=== PATIENT | female | born 1960 | race Caucasian/White ===

== ENCOUNTER → 2023-06-26 07:02 | Outpatient (REF) | payer OTHER, SELFPAY ==
[2023-06-26 08:38] LABS: ALT (SGPT) 26 U/L (0-35); AST (SGOT) 19 U/L (14-36); Albumin 3.5 g/dl (3.5-5.0); Alkaline Phosphatase 61 U/L (38-126); Blood Urea Nitrogen 38 mg/dl (7-17); Calcium 9.6 mg/dl (8.4-10.2); Carbon Dioxide 28 mmol/L (22-30); Chloride 106 mmol/L (98-107); Glucose 93 mg/dl (70-99); HDL Cholesterol 73 mg/dl; LDL Cholesterol, Calculated 68 mg/dl; Potassium 4.3 mmol/L (3.5-5.1); Sodium 135 mmol/L (135-145); Total Bilirubin 0.6 mg/dl (0.2-1.3); Total Cholesterol 155 mg/dl (50-199); Total Protein 6.1 g/dl (6.3-8.2); Triglyceride 73 mg/dl (10-149); Very Low Density Lipoprotein 14 mg/dl (0-30); eGFR > 60.00
== END ==
LOC: MRI 3T 07:02
PROVIDERS: ATTENDING PHYSICIAN Physician Assistant Medical; REFERRING PHYSICIAN Internal Medicine Interventional Cardiology
DX: M54.50 Low back pain, unspecified (principal); E78.2 Mixed hyperlipidemia; R01.1 Cardiac murmur, unspecified; Q61.3 Polycystic kidney, unspecified; I10 Essential (primary) hypertension; I25.10 Atherosclerotic heart disease of native coronary artery without angina pectoris
CPT/HCPCS: 36415; 72148; 80053; 80061

== ENCOUNTER → 2023-09-15 06:36 | Outpatient (REF) | payer OTHER, SELFPAY ==
[2023-09-15 08:08] LABS: ALT (SGPT) 18 U/L (0-35); AST (SGOT) 22 U/L (14-36); Albumin 3.6 g/dl (3.5-5.0); Alkaline Phosphatase 55 U/L (38-126); Blood Urea Nitrogen 21 mg/dl (7-17); Calcium 9.9 mg/dl (8.4-10.2); Carbon Dioxide 26 mmol/L (22-30); Chloride 108 mmol/L (98-107); Glucose 99 mg/dl (70-99); Potassium 4.2 mmol/L (3.5-5.1); Sodium 142 mmol/L (135-145); Total Bilirubin 0.4 mg/dl (0.2-1.3); Total Protein 6.3 g/dl (6.3-8.2); eGFR > 60.00
== END ==
LOC: REG 06:36
PROVIDERS: ATTENDING PHYSICIAN Specialist; FAMILY PHYSICIAN Physician Assistant Medical
DX: I10 Essential (primary) hypertension (principal); R80.9 Proteinuria, unspecified; Q61.2 Polycystic kidney, adult type; N18.1 Chronic kidney disease, stage 1
CPT/HCPCS: 36415; 80053

== ENCOUNTER → 2023-09-27 08:44 | Outpatient (REF) | payer OTHER, SELFPAY ==
[2023-09-27 10:24] LABS: ALT (SGPT) 18 U/L (0-35); AST (SGOT) 19 U/L (14-36); Albumin 3.5 g/dl (3.5-5.0); Alkaline Phosphatase 56 U/L (38-126); Blood Urea Nitrogen 21 mg/dl (7-17); Carbon Dioxide 29 mmol/L (22-30); Chloride 108 mmol/L (98-107); Glucose 92 mg/dl (70-99); Potassium 4.5 mmol/L (3.5-5.1); Sodium 140 mmol/L (135-145); Total Bilirubin 0.3 mg/dl (0.2-1.3); Total Protein 6.4 g/dl (6.3-8.2); eGFR 56.11
== END ==
LOC: REG 08:44
PROVIDERS: ATTENDING PHYSICIAN Specialist; FAMILY PHYSICIAN Physician Assistant Medical
DX: I10 Essential (primary) hypertension (principal); R80.9 Proteinuria, unspecified; Q61.2 Polycystic kidney, adult type; N18.1 Chronic kidney disease, stage 1
CPT/HCPCS: 36415; 80053

== ENCOUNTER → 2023-10-24 07:04 | Outpatient (REF) | payer MEDICARE, SELFPAY ==
[2023-10-24 10:18] LABS: ALT (SGPT) 19 U/L (0-35); AST (SGOT) 24 U/L (14-36); Alkaline Phosphatase 53 U/L (38-126); Blood Urea Nitrogen 36 mg/dl (7-17); Calcium 10.4 mg/dl (8.4-10.2); Carbon Dioxide 27 mmol/L (22-30); Chloride 107 mmol/L (98-107); Glucose 93 mg/dl (70-99); Potassium 4.8 mmol/L (3.5-5.1); Sodium 139 mmol/L (135-145); Total Bilirubin 0.4 mg/dl (0.2-1.3); Total Protein 6.7 g/dl (6.3-8.2); eGFR 55.76
== END ==
LOC: REG 07:04
PROVIDERS: ATTENDING PHYSICIAN Specialist; FAMILY PHYSICIAN Physician Assistant Medical
DX: I10 Essential (primary) hypertension (principal); R80.9 Proteinuria, unspecified; Q61.2 Polycystic kidney, adult type; N18.1 Chronic kidney disease, stage 1
CPT/HCPCS: 36415; 80053

== ENCOUNTER → 2023-11-22 07:49 | Outpatient (REF) | payer MEDICARE, SELFPAY ==
[2023-11-22 09:26] LABS: ALT (SGPT) 23 U/L (0-35); AST (SGOT) 27 U/L (14-36); Albumin 3.8 g/dl (3.5-5.0); Alkaline Phosphatase 42 U/L (38-126); Blood Urea Nitrogen 28 mg/dl (7-17); Calcium 10.2 mg/dl (8.4-10.2); Carbon Dioxide 26 mmol/L (22-30); Chloride 109 mmol/L (98-107); Glucose 100 mg/dl (70-99); Sodium 140 mmol/L (135-145); Total Bilirubin 0.5 mg/dl (0.2-1.3); Total Protein 6.4 g/dl (6.3-8.2); eGFR 55.76
[2023-11-22 14:32] LABS: Potassium 4.2 mmol/L (3.5-5.1)
== END ==
LOC: REG 07:49
PROVIDERS: ATTENDING PHYSICIAN Specialist; FAMILY PHYSICIAN Physician Assistant Medical
DX: I10 Essential (primary) hypertension (principal); R80.9 Proteinuria, unspecified; Q61.2 Polycystic kidney, adult type; N18.1 Chronic kidney disease, stage 1
CPT/HCPCS: 36415; 80053

== ENCOUNTER → 2023-12-19 06:36 | Outpatient (REF) | payer MEDICARE, SELFPAY ==
[2023-12-19 08:07] LABS: ALT (SGPT) 16 U/L (0-35); AST (SGOT) 21 U/L (14-36); Albumin 3.6 g/dl (3.5-5.0); Alkaline Phosphatase 52 U/L (38-126); Blood Urea Nitrogen 22 mg/dl (7-17); Calcium 9.6 mg/dl (8.4-10.2); Carbon Dioxide 26 mmol/L (22-30); Chloride 107 mmol/L (98-107); Glucose 104 mg/dl (70-99); Potassium 4.4 mmol/L (3.5-5.1); Sodium 139 mmol/L (135-145); Total Bilirubin 0.3 mg/dl (0.2-1.3); Total Protein 6.2 g/dl (6.3-8.2); eGFR 45.63
== END ==
LOC: REG 06:36
PROVIDERS: ATTENDING PHYSICIAN Specialist; FAMILY PHYSICIAN Physician Assistant Medical
DX: I10 Essential (primary) hypertension (principal); R80.9 Proteinuria, unspecified; Q61.2 Polycystic kidney, adult type; N18.1 Chronic kidney disease, stage 1
CPT/HCPCS: 36415; 80053

== ENCOUNTER → 2024-01-17 08:08 | Outpatient (REF) | payer MEDICARE, OTHER, SELFPAY ==
[2024-01-17 09:28] LABS: ALT (SGPT) 15 U/L (0-35); AST (SGOT) 23 U/L (14-36); Alkaline Phosphatase 57 U/L (38-126); Blood Urea Nitrogen 20 mg/dl (7-17); Calcium 9.8 mg/dl (8.4-10.2); Carbon Dioxide 25 mmol/L (22-30); Chloride 109 mmol/L (98-107); Glucose 95 mg/dl (70-99); Potassium 4.2 mmol/L (3.5-5.1); Sodium 145 mmol/L (135-145); Total Bilirubin 0.5 mg/dl (0.2-1.3); Total Protein 6.7 g/dl (6.3-8.2); eGFR 55.76
== END ==
LOC: REG 08:08
PROVIDERS: ATTENDING PHYSICIAN Specialist; FAMILY PHYSICIAN Physician Assistant Medical
DX: I10 Essential (primary) hypertension (principal); R80.9 Proteinuria, unspecified; Q61.2 Polycystic kidney, adult type; N18.1 Chronic kidney disease, stage 1
CPT/HCPCS: 36415; 80053

== ENCOUNTER → 2024-02-14 07:56 | Outpatient (REF) | payer OTHER, SELFPAY ==
[2024-02-14 09:48] LABS: ALT (SGPT) 23 U/L (0-35); AST (SGOT) 24 U/L (14-36); Albumin 4.1 g/dl (3.5-5.0); Alkaline Phosphatase 54 U/L (38-126); Blood Urea Nitrogen 27 mg/dl (7-17); Carbon Dioxide 28 mmol/L (22-30); Chloride 106 mmol/L (98-107); Glucose 84 mg/dl (70-99); Potassium 4.3 mmol/L (3.5-5.1); Sodium 143 mmol/L (135-145); Total Bilirubin 0.3 mg/dl (0.2-1.3); Total Protein 6.8 g/dl (6.3-8.2); eGFR 45.63
== END ==
LOC: REG 07:56
PROVIDERS: ATTENDING PHYSICIAN Specialist; FAMILY PHYSICIAN Physician Assistant Medical
DX: I10 Essential (primary) hypertension (principal); R80.9 Proteinuria, unspecified; Q61.2 Polycystic kidney, adult type; N18.1 Chronic kidney disease, stage 1
CPT/HCPCS: 36415; 80053

== ENCOUNTER → 2024-02-25 12:40 | Outpatient (REF) | payer OTHER, SELFPAY ==
[2024-02-25 13:51] LABS: % Basophils 0.7 % (0-2); % Immature Granulocytes 0.1 % (0-0.5); % Lymphocytes 30.1 % (20.5-51.1); % Monocytes 6.1 % (1.7-9.3); Absolute Basophils 0.1 10^3/uL (0-0.2); Absolute Eosinophils 0.3 10^3/uL (0-0.7); Absolute Monocytes 0.4 10^3/uL (0.1-0.6); Hematocrit 31.4 % (37.0-47.0); Hemoglobin 10.6 g/dL (12.0-16.0); Mean Corp Hgb Conc. 33.8 g/dL (33.0-37.0); Mean Corpuscular Hgb 30.7 pg (27.0-31.0); Mean Platelet Volume 10.2 fL (7.4-10.4); Nucleated Red Blood Cells % 0 %; Platelet Count 244 10^3/uL (130-400); Red Blood Cell Count 3.45 10^6/uL (4.20-5.40); Red Cell Dist. Width 12.6 % (11.5-14.5); White Blood Cell Count 6.8 10^3/uL (4.8-10.8)
[2024-02-25 15:42] LABS: Albumin 3.9 g/dl (3.5-5.0); Carbon Dioxide 23 mmol/L (22-30); Total Cholesterol 158 mg/dl (50-199)
[2024-02-25 15:53] LABS: ALT (SGPT) 19 U/L (0-35); AST (SGOT) 28 U/L (14-36); Alkaline Phosphatase 51 U/L (38-126); Blood Urea Nitrogen 24 mg/dl (7-17); Calcium 10.1 mg/dl (8.4-10.2); Chloride 105 mmol/L (98-107); Glucose 77 mg/dl (70-99); HDL Cholesterol 70 mg/dl; LDL Cholesterol, Calculated 76 mg/dl; Potassium 4.7 mmol/L (3.5-5.1); Sodium 140 mmol/L (135-145); Total Bilirubin 0.5 mg/dl (0.2-1.3); Total Protein 6.6 g/dl (6.3-8.2); Triglyceride 63 mg/dl (10-149); Very Low Density Lipoprotein 12 mg/dl (0-30); eGFR 50.23
== END ==
LOC: REG 12:40
PROVIDERS: ATTENDING PHYSICIAN Internal Medicine Interventional Cardiology; FAMILY PHYSICIAN Physician Assistant Medical
DX: Z00.00 Encounter for general adult medical examination without abnormal findings (principal); E78.2 Mixed hyperlipidemia
CPT/HCPCS: 36415; 80053; 80061; 85025

== ENCOUNTER → 2024-03-13 08:17 | Outpatient (REF) | payer OTHER, SELFPAY ==
[2024-03-13 09:21] LABS: ALT (SGPT) 21 U/L (0-35); AST (SGOT) 23 U/L (14-36); Albumin 4.1 g/dl (3.5-5.0); Alkaline Phosphatase 50 U/L (38-126); Blood Urea Nitrogen 26 mg/dl (7-17); Carbon Dioxide 27 mmol/L (22-30); Chloride 106 mmol/L (98-107); Glucose 100 mg/dl (70-99); Potassium 4.5 mmol/L (3.5-5.1); Sodium 144 mmol/L (135-145); Total Bilirubin 0.3 mg/dl (0.2-1.3); eGFR 45.63
== END ==
LOC: REG 08:17
PROVIDERS: ATTENDING PHYSICIAN Specialist; FAMILY PHYSICIAN Physician Assistant Medical
DX: I10 Essential (primary) hypertension (principal); R80.9 Proteinuria, unspecified; Q61.2 Polycystic kidney, adult type; N18.1 Chronic kidney disease, stage 1
CPT/HCPCS: 36415; 80053

== ENCOUNTER → 2024-04-10 08:04 | Outpatient (REF) | payer OTHER, SELFPAY ==
[2024-04-10 09:36] LABS: % Eosinophils 4.1 % (0-6); % Immature Granulocytes 0.3 % (0-0.5); % Lymphocytes 35.3 % (20.5-51.1); % Monocytes 7.5 % (1.7-9.3); % Neutrophils 51.8 % (42.2-75.2); Absolute Basophils 0.1 10^3/uL (0-0.2); Absolute Eosinophils 0.3 10^3/uL (0-0.7); Absolute Lymphocytes 2.4 10^3/uL (1.2-3.4); Absolute Monocytes 0.5 10^3/uL (0.1-0.6); Absolute Neutrophils 3.5 10^3/uL (1.4-6.5); Hematocrit 36.1 % (37.0-47.0); Hemoglobin 11.8 g/dL (12.0-16.0); Mean Corp Hgb Conc. 32.7 g/dL (33.0-37.0); Mean Corpuscular Hgb 31.1 pg (27.0-31.0); Mean Corpuscular Volume 95.3 fL (81.0-99.0); Mean Platelet Volume 9.9 fL (7.4-10.4); Nucleated Red Blood Cells % 0 %; Platelet Count 250 10^3/uL (130-400); Red Blood Cell Count 3.79 10^6/uL (4.20-5.40); Red Cell Dist. Width 12.7 % (11.5-14.5); White Blood Cell Count 6.8 10^3/uL (4.8-10.8)
[2024-04-10 10:07] LABS: ALT (SGPT) 20 U/L (0-35); AST (SGOT) 25 U/L (14-36); Albumin 4.1 g/dl (3.5-5.0); Alkaline Phosphatase 58 U/L (38-126); Blood Urea Nitrogen 23 mg/dl (7-17); Carbon Dioxide 29 mmol/L (22-30); Chloride 105 mmol/L (98-107); Glucose 83 mg/dl (70-99); Iron 101 ug/dl (37-170); Potassium 4.3 mmol/L (3.5-5.1); Sodium 140 mmol/L (135-145); Total Bilirubin 0.5 mg/dl (0.2-1.3); Total Protein 6.8 g/dl (6.3-8.2); eGFR 50.23
[2024-04-10 10:36] LABS: TSH 0.61 uIU/ml (0.47-4.68)
[2024-04-10 10:41] LABS: Ferritin 99.1 ng/ml (11.1-264.0)
== END ==
LOC: REG 08:04
PROVIDERS: ATTENDING PHYSICIAN Specialist; FAMILY PHYSICIAN Physician Assistant Medical
DX: I10 Essential (primary) hypertension (principal); Q61.3 Polycystic kidney, unspecified; N18.1 Chronic kidney disease, stage 1; I25.10 Atherosclerotic heart disease of native coronary artery without angina pectoris; D64.9 Anemia, unspecified; R09.89 Other specified symptoms and signs involving the circulatory and respiratory systems
CPT/HCPCS: 36415; 80053; 82728; 83540; 84443; 85025

== ENCOUNTER → 2024-05-07 09:51 | Outpatient (REF) | payer OTHER, SELFPAY ==
[2024-05-07 11:03] LABS: % Basophils 0.6 % (0-2); % Eosinophils 1.7 % (0-6); % Immature Granulocytes 0.4 % (0-0.5); % Lymphocytes 9.8 % (20.5-51.1); % Monocytes 4.9 % (1.7-9.3); % Neutrophils 82.6 % (42.2-75.2); Absolute Basophils 0.1 10^3/uL (0-0.2); Absolute Eosinophils 0.2 10^3/uL (0-0.7); Absolute Lymphocytes 0.9 10^3/uL (1.2-3.4); Absolute Monocytes 0.5 10^3/uL (0.1-0.6); Absolute Neutrophils 7.9 10^3/uL (1.4-6.5); Hematocrit 40.9 % (37.0-47.0); Hemoglobin 13.6 g/dL (12.0-16.0); Mean Corp Hgb Conc. 33.3 g/dL (33.0-37.0); Mean Corpuscular Hgb 31.4 pg (27.0-31.0); Mean Corpuscular Volume 94.5 fL (81.0-99.0); Mean Platelet Volume 10.1 fL (7.4-10.4); Nucleated Red Blood Cells % 0 %; Platelet Count 226 10^3/uL (130-400); Red Blood Cell Count 4.33 10^6/uL (4.20-5.40); Red Cell Dist. Width 12.1 % (11.5-14.5); White Blood Cell Count 9.6 10^3/uL (4.8-10.8)
[2024-05-07 11:55] LABS: ALT (SGPT) 20 U/L (0-35); AST (SGOT) 24 U/L (14-36); Albumin 4.5 g/dl (3.5-5.0); Alkaline Phosphatase 72 U/L (38-126); Blood Urea Nitrogen 17 mg/dl (7-17); Calcium 10.1 mg/dl (8.4-10.2); Carbon Dioxide 25 mmol/L (22-30); Chloride 100 mmol/L (98-107); Glucose 102 mg/dl (70-99); Potassium 4.2 mmol/L (3.5-5.1); Sodium 138 mmol/L (135-145); Total Bilirubin 0.4 mg/dl (0.2-1.3); Total Protein 7.8 g/dl (6.3-8.2); eGFR 50.23
== END ==
LOC: REG 09:51
PROVIDERS: ATTENDING PHYSICIAN Specialist; FAMILY PHYSICIAN Physician Assistant Medical
DX: D64.9 Anemia, unspecified (principal); I10 Essential (primary) hypertension; Q61.3 Polycystic kidney, unspecified; N18.1 Chronic kidney disease, stage 1
CPT/HCPCS: 36415; 80053; 85025

== ENCOUNTER 2024-05-08 14:30 | Emergency (ER) | payer OTHER, SELFPAY ==
[2024-05-08] VITALS (9 sets, daily range): BP systolic 89–126; BP diastolic 47–74; PULSE 46–58; BMI 27.3
--- NOTE | 2024-05-08 14:39 | ED.GENMED ---
History of Present Illness
<Edna Sanon PA-C - Last Filed: 05/08/24 17:35>
General
Chief Complaint: Cold/Flu/URI Symptoms
Source: patient
Exam Limitations: none
Time Seen by Provider: 05/08/24 14:31
Nursing documentation reviewed up to this point in time: agreed with
History of Present Illness
History of Present Illness:
63-year-old female with a past medical history of mild aortic stenosis, hypertension presents emergency department today with concerns of lightheadedness and presyncope x 1 day. Patient reports that she was diagnosed with COVID 2 days ago and since
then has had intermittent dizziness and lightheadedness. She states that the symptoms come on with standing. Today, she had a episode at home where when she was finished using the bathroom, she stood up from the toilet and her niece went to go
help her get up from the toilet and she fell back and her knees caught her. At no time did patient fully lose consciousness. Patient denies chest pain or shortness of breath. Patient denies fevers or chills. EMS reports that patient was febrile
with them, she was given 500 mL bolus of fluids. Patient is currently asymptomatic, she states she has a lot of fatigue but no longer feels dizziness.
Review of Systems
<Edna Sanon PA-C - Last Filed: 05/08/24 17:35>
Review of Systems
All Other Systems: ROS reviewed and negative except as documented in HPI and ROS
Phy Exam
<Edna Sanon PA-C - Last Filed: 05/08/24 17:35>
Physical Exam
Physical Exam:
General: Patient is well appearing and in no acute distress; non-toxic
Skin: Warm and dry, no rashes or lesions
Head: Normocephalic, atraumatic
Eyes: Sclera non-icteric. EOMs intact. PERRLA.
Cardiac: Mildy bradycardic normal rhythm, mild systolic murmur
Peripheral Vascular: No lower extremity swelling or edema
Pulm: Normal respiratory effort, scattered rhonchi heard throughout, no wheezes, rales, or rhonchi
Neuro: CN II-XII intact, no focal neurologic deficits.
Psychiatric: Appropriate mood and affect.
Course
<Edna Sanon PA-C - Last Filed: 05/08/24 17:35>
Orders/Labs/Results
Orders:
Orders
05/08/24 14:35
Electrocardiogram (*1) Urgent
Reason for Study: Bradycardia / Tachycardia
EKG- Treatment ONCE
CR Chest - 2 Views Urgent
Comment:
Reason For Exam: shortness of breath, rhonchi
05/08/24 14:36
Complete Blood Count/With Diff Urgent
Comprehensive Metabolic Panel Urgent
Magnesium Urgent
05/08/24 14:44
0.9% Sodium Chloride 1000 ml [Nss] 1,000 ml IV BOLUS
Acetaminophen [Tylenol] 1,000 mg PO NOW STA
05/08/24 16:50
Orthostatic VS- Treatment ONCE
Abnormal Lab Results
05/08/24
14:36
RBC 3.57 L 10^6/uL
(4.20-5.40)
Hgb 11.3 L g/dL
(12.0-16.0)
Hct 33.9 L %
(37.0-47.0)
MCH 31.7 H pg
(27.0-31.0)
Absolute Monos (auto) 0.7 H 10^3/uL
(0.1-0.6)
BUN 21 H mg/dl
(7-17)
Creatinine 1.5 H mg/dL
(0.6-1.0)
Glucose 102 H mg/dl
(70-99)
Total Protein 5.9 L D g/dl
(6.3-8.2)
Albumin 3.4 L g/dl
(3.5-5.0)
05/08/24 14:36
05/08/24 14:36
Vital Signs
Initial and Last Documented VS:
Initial Vital Signs
Temp Pulse Resp BP
36.7 C 46 20 121/53
05/08/24 14:31 05/08/24 14:31 05/08/24 14:31 05/08/24 14:31
Last Documented Vital Signs
Temp Pulse Resp BP Pulse Ox
36.7 C 48 17 126/61 96
05/08/24 14:31 05/08/24 17:30 05/08/24 17:30 05/08/24 17:00 05/08/24 17:30
<Job Hodge MD - Last Filed: 05/08/24 17:40>
Orders/Labs/Results
Orders:
Orders
05/08/24 14:35
Electrocardiogram (*1) Urgent
Reason for Study: Bradycardia / Tachycardia
EKG- Treatment ONCE
CR Chest - 2 Views Urgent
Comment:
Reason For Exam: shortness of breath, rhonchi
05/08/24 14:36
Complete Blood Count/With Diff Urgent
Comprehensive Metabolic Panel Urgent
Magnesium Urgent
05/08/24 14:44
0.9% Sodium Chloride 1000 ml [Nss] 1,000 ml IV BOLUS
Acetaminophen [Tylenol] 1,000 mg PO NOW STA
05/08/24 16:50
Orthostatic VS- Treatment ONCE
Abnormal Lab Results
05/08/24
14:36
RBC 3.57 L 10^6/uL
(4.20-5.40)
Hgb 11.3 L g/dL
(12.0-16.0)
Hct 33.9 L %
(37.0-47.0)
MCH 31.7 H pg
(27.0-31.0)
Absolute Monos (auto) 0.7 H 10^3/uL
(0.1-0.6)
BUN 21 H mg/dl
(7-17)
Creatinine 1.5 H mg/dL
(0.6-1.0)
Glucose 102 H mg/dl
(70-99)
Total Protein 5.9 L D g/dl
(6.3-8.2)
Albumin 3.4 L g/dl
(3.5-5.0)
05/08/24 14:36
05/08/24 14:36
Vital Signs
Initial and Last Documented VS:
Initial Vital Signs
Temp Pulse Resp BP
36.7 C 46 20 121/53
05/08/24 14:31 05/08/24 14:31 05/08/24 14:31 05/08/24 14:31
Last Documented Vital Signs
Temp Pulse Resp BP Pulse Ox
36.7 C 48 17 126/61 96
05/08/24 14:31 05/08/24 17:30 05/08/24 17:30 05/08/24 17:00 05/08/24 17:30
Faizanlt;Edna Sanon PA-C - Last Filed: 05/08/24 17:35>
MDM/Problems Addressed
Differential Diagnosis Includes:
see below
MDM/Problems Addressed:
NUMBER AND COMPLEXITY OF PROBLEMS ADDRESSED AT THE ENCOUNTER
� Chronic conditions affecting care: HTN, heart murmur
� Acute Exacerbation and/or Progression of Chronic Illness:
� Differential Diagnosis includes: vasovagal syncope, arrhythmia, COVID-19
AMOUNT AND/OR COMPLEXITY OF DATA TO BE REVIEWED AND ANALYZED
� I performed an independent evaluation of and my interpretation is:
EKG: EKG does show sinus bradycardia rate 47 no evidence of heart block
Laboratory Studies: Elevated BUN to creatinine ratio, patient was given fluids
Other:
� Review of other/old records: no previous ER physician documentation to review
� Clinical information was obtained by an independent historian: present with patient who provided HPI
� Prescriptions/Medications Considered but not given: none
� Further testing considered but not performed: n/a
RISK OF COMPLICATIONS AND/OR MORBIDITY OR MORTALITY OF PATIENT MANAGEMENT
� Social determinants of health affecting care: none
� Discussion with other providers: ER attending
� Escalation of care including admission/observation vs risk of discharge considered:
63-year-old female with a past medical history of hypertension, heart murmur mild aortic stenosis presents emergency department with concerns of a presyncopal episode. She has had COVID-19 for the past 3 days and has had intermittent episodes of
dizziness. These episodes come on when patient stands up. On physical exam she is well-appearing in no acute distress does have some scattered rhonchi on exam, will send out for chest x-ray to rule out any concurrent pneumonia. Patient did have
orthostatic vital signs, patient was given fluids. On reassessment, patient appears well, she feels as though she feels less weak with the fluids. Suspect vasovagal syncope/orthostatic hypotension, do not suspect any cardiac arrhythmia or
neurologic etiology. Encouraged home p.o. intake, patient stable for discharge.
<Edna Sanon PA-C - Last Filed: 05/08/24 17:35>
*Pulse Oximetry
Patient hypoxic: no
*Critical Care Note
Total Time (30-74mins, 75-104mins- exclusive of procedures): Not Applicable
ED Attending Note
<Edna Sanon PA-C - Last Filed: 05/08/24 17:35>
-
Portions of this chart may have been created with voice recognition software.� Occasional wrong word or��sound alike� substitutions may have occurred due to the inherent limitations of voice recognition software.
<Job Hodge MD - Last Filed: 05/08/24 17:40>
ED Attending Note
Patient seen and examined by attending physician: Yes
ED Attending Note:
I have seen and evaluated the patient with a [id number] encounter. I have spoken to the advance practicer provider and involved in the medical history, the physical exam, medical decision making.
Evaluation and management service: agree unless noted differently below.
Results interpretation: agree unless noted differently below.
Focused HPI: 63-year-old female with a past medical history as noted presents to the ER for evaluation of viral syndrome in the setting of known COVID and episode of lightheadedness. Patient reports that she has been sick for the past 3 days with
COVID�tested positive at home. She says she has had a sore throat and a cough and some rhinorrhea and fatigue. At the same time patient has been on laxatives in preparation for a colonoscopy next week. She says that today she had an explosive
bowel movement and stood up and felt lightheaded and nearly passed out. She says that her daughter was nearby and had to catch her to keep her from falling. EMS was called to bring her to the hospital. She denies any lightheadedness at present
says that she feels generally well aside from fatigue and sore throat. She denies any chest pain or shortness of breath. She denies any vomiting. She denies any other complaints.
Physical exam: Awake alert not in distress. Vital signs noted for mild bradycardia. She has no cardiac rubs gallops or murmurs. Lungs sound clear to auscultation bilaterally although she does have frequent coughing. Mucous membranes moist.
Medical Decision Makin-year-old female presents for evaluation of presyncopal event in the setting of current COVID as well as prepping for colonoscopy. She is mildly bradycardic EKG shows sinus bradycardia. Review of prior visits shows that
patient has had similar bradycardia in the past and she is on beta-licha which likely contributes. While she did have episode of lightheadedness today she says that it was transient and has since resolved and she has gotten up and walked here in
the emergency room without symptoms�I do not suspect that she is symptomatic from the bradycardia. She had labs sent off which were essentially unremarkable�she had a very mild LY with a creatinine of 1.5 from a baseline of 1.2 and was given IV
fluids. Her chest x-ray reviewed by me shows no pneumonia. She was feeling well after receiving fluids here and at this point I think she is stable for discharge. We did talk about potentially starting Paxlovid but patient declined. I encouraged
her to ensure she is drinking plenty of fluids especially in the setting of colonoscopy prep. Encouraged her to call GI to inform them that she has COVID prior to colonoscopy next week. She feels comfortable this plan. All questions answered.
Discharge Plan
Departure
Patient Disposition: Home (Routine Discharge)
Date of Disposition: 05/08/24
Time of Disposition: 17:18
Patient with high blood pressure during this ER visit?: No
Condition: Good
Discharge Problem:
Pre-syncope, COVID-19
Instructions: COVID-19 in adults - Discharge instructions, Dizziness in adults - ED discharge instructions
Prescriptions:
No Action
atorvastatin 20 mg Tablet
20 mg PO DAILY
calcium carbonate-vitamin D3 [Calcium 600 + D(3)] 600 mg-10 mcg (400 unit) Tablet
1 tab PO DAILY
omega 0-vyv-jgt-fish oil [Fish Oil] 360-1,200 mg Capsule,Delayed Release(Dr/Ec)
1 cap PO DAILY
lisinopril 20 mg tablet
20 mg PO DAILY Qty: 90 3RF
Rx Instructions:
Note decreased dose
aspirin [aspirin] 81 mg tablet,delayed release (DR/EC)
81 mg PO DAILY Qty: 1 0RF
metoprolol succinate [metoprolol succinate] 25 mg tablet extended release 24 hr
25 mg PO DAILY Qty: 90 3RF
amlodipine 5 mg tablet
5 mg PO DAILY Qty: 90 3RF
Rx Instructions:
Please note increased dose
Referrals:
Francisco Bueno PA-C [Family Provider] -
Activity Restrictions/Additional Instructions:
Please stay well hydrated.
PLEASE RETURN TO THE EMERGENCY DEPARTMENT SHOULD YOU EXPERIENCE CHEST PAIN, SHORTNESS OF BREATH, FURTHER SYNCOPAL EPISODES, OR ANY OTHER SIGNS OR SYMPTOMS CONCERNING TO YOU.
Interventions
Interventions:
*Risk Screen - Suicide Last Done: 05/08/24 14:31
*General Assessment Last Done: 05/08/24 14:31
*Neglect/Abuse Screening Last Done: 05/08/24 14:31
ED- Fall Risk Assessment Last Done: 05/08/24 14:31
*ED COVID-19 Vaccine History Last Done: 05/08/24 14:31
ED- Pulmonary Assessment Last Done: 05/08/24 14:31
Discharge Date and Time
Print Language: UPPER SORBIAN
[2024-05-08 14:48] LABS: % Basophils 0.7 % (0-2); % Eosinophils 1.5 % (0-6); % Immature Granulocytes 0.4 % (0-0.5); % Monocytes 8.8 % (1.7-9.3); % Neutrophils 67.6 % (42.2-75.2); Absolute Basophils 0.1 10^3/uL (0-0.2); Absolute Eosinophils 0.1 10^3/uL (0-0.7); Absolute Lymphocytes 1.6 10^3/uL (1.2-3.4); Absolute Monocytes 0.7 10^3/uL (0.1-0.6); Absolute Neutrophils 5.1 10^3/uL (1.4-6.5); Hematocrit 33.9 % (37.0-47.0); Hemoglobin 11.3 g/dL (12.0-16.0); Mean Corp Hgb Conc. 33.3 g/dL (33.0-37.0); Mean Corpuscular Hgb 31.7 pg (27.0-31.0); Mean Platelet Volume 9.9 fL (7.4-10.4); Nucleated Red Blood Cells % 0 %; Platelet Count 175 10^3/uL (130-400); Red Blood Cell Count 3.57 10^6/uL (4.20-5.40); Red Cell Dist. Width 12.1 % (11.5-14.5); White Blood Cell Count 7.5 10^3/uL (4.8-10.8)
[2024-05-08 15:04] LABS: ALT (SGPT) 19 U/L (0-35); AST (SGOT) 25 U/L (14-36); Albumin 3.4 g/dl (3.5-5.0); Alkaline Phosphatase 62 U/L (38-126); Blood Urea Nitrogen 21 mg/dl (7-17); Calcium 8.5 mg/dl (8.4-10.2); Carbon Dioxide 26 mmol/L (22-30); Chloride 103 mmol/L (98-107); Estimated Creatinine Clearance 32 ml/min; Glucose 102 mg/dl (70-99); Magnesium 1.9 mg/dl (1.6-2.3); Potassium 4.2 mmol/L (3.5-5.1); Sodium 135 mmol/L (135-145); Total Bilirubin 0.3 mg/dl (0.2-1.3); Total Protein 5.9 g/dl (6.3-8.2); eGFR 38.43
[2024-05-08] MEDS: TYLENOL 1000 MG PO (15:33)
[2024-05-08] MEDS: NSS 1000 IV (15:33)
--- NOTE | 2024-05-08 17:37 | EDRN ---
Orthostatics completed by previous RN, provider notified of results.
== END 2024-05-08 17:57 | disposition home or self-care (01) ==
LOC: EMR 14:30
PROVIDERS: Physician Assistant; EMERGENCY PHYSICIAN Emergency Medicine; FAMILY PHYSICIAN Physician Assistant Medical
DX: R55 Syncope and collapse (principal); U07.1 COVID-19; I35.0 Nonrheumatic aortic (valve) stenosis; I10 Essential (primary) hypertension; R01.1 Cardiac murmur, unspecified; Z79.82 Long term (current) use of aspirin
CPT/HCPCS: 99284; 96360; 71046; 80053; 83735; 85025; 93005

== ENCOUNTER → 2024-06-02 08:54 | Outpatient (REF) | payer OTHER, SELFPAY | LOC: RCS 08:54 | PROVIDERS: ATTENDING PHYSICIAN Internal Medicine Interventional Cardiology; FAMILY PHYSICIAN Physician Assistant Medical | DX: I25.10 Atherosclerotic heart disease of native coronary artery without angina pectoris (principal); I35.0 Nonrheumatic aortic (valve) stenosis | CPT/HCPCS: 93306 ==

== ENCOUNTER 2024-06-09 06:34 | Day surgery (SDC) | payer OTHER, SELFPAY | END 2024-06-09 14:46 | disposition home or self-care (01) | LOC: GI 06:34 | PROVIDERS: ATTENDING PHYSICIAN Student in an Organized Health Care Education/Training Program | DX: D12.5 Benign neoplasm of sigmoid colon (principal); D12.8 Benign neoplasm of rectum; K57.30 Diverticulosis of large intestine without perforation or abscess without bleeding; K56.699 Other intestinal obstruction unspecified as to partial versus complete obstruction; K64.4 Residual hemorrhoidal skin tags; K59.00 Constipation, unspecified; K20.80 Other esophagitis without bleeding; K25.9 Gastric ulcer, unspecified as acute or chronic, without hemorrhage or perforation; K29.60 Other gastritis without bleeding; D50.9 Iron deficiency anemia, unspecified | CPT/HCPCS: 45380; 43239; 88305; 88342 ==

== ENCOUNTER → 2024-06-19 08:54 | Outpatient (REF) | payer OTHER, SELFPAY ==
[2024-06-19 09:51] LABS: % Basophils 0.6 % (0-2); % Eosinophils 3.3 % (0-6); % Immature Granulocytes 0.2 % (0-0.5); % Lymphocytes 26.7 % (20.5-51.1); % Neutrophils 62.2 % (42.2-75.2); Absolute Basophils 0.1 10^3/uL (0-0.2); Absolute Eosinophils 0.3 10^3/uL (0-0.7); Absolute Lymphocytes 2.2 10^3/uL (1.2-3.4); Absolute Monocytes 0.6 10^3/uL (0.1-0.6); Hematocrit 36.2 % (37.0-47.0); Hemoglobin 11.8 g/dL (12.0-16.0); Mean Corp Hgb Conc. 32.6 g/dL (33.0-37.0); Mean Corpuscular Hgb 30.7 pg (27.0-31.0); Mean Corpuscular Volume 94.3 fL (81.0-99.0); Mean Platelet Volume 9.7 fL (7.4-10.4); Nucleated Red Blood Cells % 0 %; Platelet Count 286 10^3/uL (130-400); Red Blood Cell Count 3.84 10^6/uL (4.20-5.40); Red Cell Dist. Width 12.7 % (11.5-14.5); White Blood Cell Count 8.1 10^3/uL (4.8-10.8)
[2024-06-19 10:16] LABS: ALT (SGPT) 21 U/L (0-35); AST (SGOT) 21 U/L (14-36); Albumin 3.6 g/dl (3.5-5.0); Alkaline Phosphatase 52 U/L (38-126); Blood Urea Nitrogen 16 mg/dl (7-17); Calcium 9.2 mg/dl (8.4-10.2); Carbon Dioxide 27 mmol/L (22-30); Chloride 107 mmol/L (98-107); Glucose 93 mg/dl (70-99); HDL Cholesterol 60 mg/dl; LDL Cholesterol, Calculated 98 mg/dl; Potassium 4.4 mmol/L (3.5-5.1); Sodium 141 mmol/L (135-145); Total Bilirubin 0.5 mg/dl (0.2-1.3); Total Cholesterol 181 mg/dl (50-199); Total Protein 6.1 g/dl (6.3-8.2); Triglyceride 116 mg/dl (10-149); Very Low Density Lipoprotein 23 mg/dl (0-30); eGFR 55.76
[2024-06-19 10:42] LABS: TSH 0.41 uIU/ml (0.47-4.68)
[2024-06-19 10:58] LABS: Microalbumin, Random Urine < 0.6 mg/dl (0.6-1.7)
[2024-06-19 12:15] LABS: Glycohemoglobin (HgbA1c) 5.8 % (4.0-5.6)
== END ==
LOC: REG 08:54
PROVIDERS: ATTENDING PHYSICIAN Specialist; FAMILY PHYSICIAN Physician Assistant Medical
DX: Z00.00 Encounter for general adult medical examination without abnormal findings (principal); I10 Essential (primary) hypertension; Q61.3 Polycystic kidney, unspecified; N18.1 Chronic kidney disease, stage 1
CPT/HCPCS: 36415; 80053; 80061; 82043; 82570; 83036; 84443; 85025

== ENCOUNTER → 2024-07-09 07:05 | Outpatient (REF) | payer OTHER, SELFPAY ==
[2024-07-09 07:30] LABS: % Basophils 0.8 % (0-2); % Eosinophils 4.5 % (0-6); % Immature Granulocytes 0.3 % (0-0.5); % Lymphocytes 25.4 % (20.5-51.1); % Monocytes 6.9 % (1.7-9.3); % Neutrophils 62.1 % (42.2-75.2); Absolute Basophils 0.1 10^3/uL (0-0.2); Absolute Eosinophils 0.4 10^3/uL (0-0.7); Absolute Lymphocytes 2.3 10^3/uL (1.2-3.4); Absolute Monocytes 0.6 10^3/uL (0.1-0.6); Absolute Neutrophils 5.5 10^3/uL (1.4-6.5); Hematocrit 33.4 % (37.0-47.0); Hemoglobin 11.2 g/dL (12.0-16.0); Mean Corp Hgb Conc. 33.5 g/dL (33.0-37.0); Mean Corpuscular Hgb 31.4 pg (27.0-31.0); Mean Corpuscular Volume 93.6 fL (81.0-99.0); Mean Platelet Volume 9.6 fL (7.4-10.4); Nucleated Red Blood Cells % 0 %; Platelet Count 245 10^3/uL (130-400); Red Blood Cell Count 3.57 10^6/uL (4.20-5.40); Red Cell Dist. Width 13.2 % (11.5-14.5); White Blood Cell Count 8.9 10^3/uL (4.8-10.8)
[2024-07-09 07:52] LABS: ALT (SGPT) 21 U/L (0-35); AST (SGOT) 22 U/L (14-36); Albumin 3.7 g/dl (3.5-5.0); Alkaline Phosphatase 59 U/L (38-126); Blood Urea Nitrogen 18 mg/dl (7-17); Calcium 9.6 mg/dl (8.4-10.2); Carbon Dioxide 30 mmol/L (22-30); Chloride 105 mmol/L (98-107); Glucose 89 mg/dl (70-99); Potassium 4.3 mmol/L (3.5-5.1); Sodium 139 mmol/L (135-145); Total Bilirubin 0.5 mg/dl (0.2-1.3); Total Protein 6.5 g/dl (6.3-8.2); eGFR 50.23
== END ==
LOC: REG 07:05
PROVIDERS: ATTENDING PHYSICIAN Specialist; FAMILY PHYSICIAN Physician Assistant Medical
DX: I10 Essential (primary) hypertension (principal); Q61.3 Polycystic kidney, unspecified; N18.1 Chronic kidney disease, stage 1; R79.9 Abnormal finding of blood chemistry, unspecified
CPT/HCPCS: 36415; 80053; 85025

== ENCOUNTER → 2024-07-20 08:20 | Outpatient (REF) | payer OTHER, SELFPAY | LOC: RAD 08:20 | PROVIDERS: ATTENDING PHYSICIAN Physician Assistant Medical | DX: I25.10 Atherosclerotic heart disease of native coronary artery without angina pectoris (principal); Z87.891 Personal history of nicotine dependence; Z12.31 Encounter for screening mammogram for malignant neoplasm of breast | CPT/HCPCS: 76770 ==

== ENCOUNTER → 2024-08-07 08:58 | Outpatient (REF) | payer OTHER, SELFPAY ==
[2024-08-07 10:13] LABS: ALT (SGPT) 26 U/L (0-35); AST (SGOT) 24 U/L (14-36); Albumin 4.1 g/dl (3.5-5.0); Alkaline Phosphatase 61 U/L (38-126); Blood Urea Nitrogen 24 mg/dl (7-17); Calcium 9.9 mg/dl (8.4-10.2); Carbon Dioxide 27 mmol/L (22-30); Chloride 108 mmol/L (98-107); Glucose 86 mg/dl (70-99); Potassium 4.7 mmol/L (3.5-5.1); Sodium 144 mmol/L (135-145); Total Bilirubin 0.5 mg/dl (0.2-1.3); Total Protein 6.9 g/dl (6.3-8.2); eGFR 45.63
== END ==
LOC: REG 08:58
PROVIDERS: ATTENDING PHYSICIAN Specialist
DX: I10 Essential (primary) hypertension (principal); Q61.3 Polycystic kidney, unspecified; N18.1 Chronic kidney disease, stage 1
CPT/HCPCS: 36415; 80053

== ENCOUNTER → 2024-08-09 11:16 | Outpatient (REF) | payer OTHER, SELFPAY | LOC: WDC 11:16 | PROVIDERS: ATTENDING PHYSICIAN Physician Assistant Medical | DX: M81.0 Age-related osteoporosis without current pathological fracture (principal); Z12.31 Encounter for screening mammogram for malignant neoplasm of breast | CPT/HCPCS: 77063; 77067; 77080 ==

== ENCOUNTER 2024-08-19 06:23 | Day surgery (SDC) | payer OTHER, SELFPAY | END 2024-08-19 14:36 | disposition home or self-care (01) | LOC: GI 06:23 | PROVIDERS: ATTENDING PHYSICIAN Student in an Organized Health Care Education/Training Program | DX: K25.3 Acute gastric ulcer without hemorrhage or perforation (principal); Z87.11 Personal history of peptic ulcer disease | CPT/HCPCS: 43239; 88305; 88342 ==

== ENCOUNTER → 2024-09-03 07:56 | Outpatient (REF) | payer OTHER, MEDICARE, SELFPAY ==
[2024-09-03 15:11] LABS: ALT (SGPT) 16 U/L (0-35); AST (SGOT) 19 U/L (14-36); Albumin 3.9 g/dl (3.5-5.0); Alkaline Phosphatase 61 U/L (38-126); Blood Urea Nitrogen 17 mg/dl (7-17); Calcium 9.6 mg/dl (8.4-10.2); Carbon Dioxide 28 mmol/L (22-30); Chloride 108 mmol/L (98-107); Glucose 90 mg/dl (70-99); Potassium 4.7 mmol/L (3.5-5.1); Sodium 143 mmol/L (135-145); Total Bilirubin 0.5 mg/dl (0.2-1.3); Total Protein 6.8 g/dl (6.3-8.2); eGFR 45.63
== END ==
LOC: REG 07:56
PROVIDERS: ATTENDING PHYSICIAN Specialist; FAMILY PHYSICIAN Physician Assistant Medical
DX: I10 Essential (primary) hypertension (principal); Q61.3 Polycystic kidney, unspecified; N18.1 Chronic kidney disease, stage 1
CPT/HCPCS: 36415; 80053

== ENCOUNTER → 2024-10-09 08:02 | Outpatient (REF) | payer OTHER, MEDICARE, SELFPAY ==
[2024-10-09 08:35] LABS: % Eosinophils 4.3 % (0-6); % Immature Granulocytes 0.4 % (0-0.5); % Lymphocytes 29.5 % (20.5-51.1); % Monocytes 6.7 % (1.7-9.3); % Neutrophils 58.1 % (42.2-75.2); Absolute Basophils 0.1 10^3/uL (0-0.2); Absolute Eosinophils 0.3 10^3/uL (0-0.7); Absolute Lymphocytes 2.2 10^3/uL (1.2-3.4); Absolute Monocytes 0.5 10^3/uL (0.1-0.6); Absolute Neutrophils 4.2 10^3/uL (1.4-6.5); Hemoglobin 11.8 g/dL (12.0-16.0); Mean Corp Hgb Conc. 32.8 g/dL (33.0-37.0); Mean Corpuscular Hgb 31.4 pg (27.0-31.0); Mean Corpuscular Volume 95.7 fL (81.0-99.0); Mean Platelet Volume 9.5 fL (7.4-10.4); Nucleated Red Blood Cells % 0 %; Platelet Count 243 10^3/uL (130-400); Red Blood Cell Count 3.76 10^6/uL (4.20-5.40); Red Cell Dist. Width 12.5 % (11.5-14.5); White Blood Cell Count 7.3 10^3/uL (4.8-10.8)
[2024-10-09 09:02] LABS: ALT (SGPT) 19 U/L (0-35); AST (SGOT) 21 U/L (14-36); Albumin 3.9 g/dl (3.5-5.0); Alkaline Phosphatase 62 U/L (38-126); Blood Urea Nitrogen 18 mg/dl (7-17); Calcium 9.1 mg/dl (8.4-10.2); Carbon Dioxide 27 mmol/L (22-30); Chloride 111 mmol/L (98-107); Glucose 92 mg/dl (70-99); HDL Cholesterol 63 mg/dl; LDL Cholesterol, Calculated 82 mg/dl; Potassium 4.9 mmol/L (3.5-5.1); Sodium 141 mmol/L (135-145); Total Bilirubin 0.4 mg/dl (0.2-1.3); Total Cholesterol 165 mg/dl (50-199); Triglyceride 101 mg/dl (10-149); Very Low Density Lipoprotein 20 mg/dl (0-30); eGFR 55.42
[2024-10-09 09:31] LABS: TSH 1.15 uIU/ml (0.47-4.68)
[2024-10-09 10:53] LABS: Glycohemoglobin (HgbA1c) 5.5 % (4.0-5.6)
== END ==
LOC: REG 08:02
PROVIDERS: ATTENDING PHYSICIAN Physician Assistant Medical; REFERRING PHYSICIAN Specialist
DX: I25.10 Atherosclerotic heart disease of native coronary artery without angina pectoris (principal); I10 Essential (primary) hypertension; E78.2 Mixed hyperlipidemia; R01.1 Cardiac murmur, unspecified; I35.0 Nonrheumatic aortic (valve) stenosis; K25.9 Gastric ulcer, unspecified as acute or chronic, without hemorrhage or perforation; M81.0 Age-related osteoporosis without current pathological fracture; Z68.31 Body mass index [BMI] 31.0-31.9, adult; R73.02 Impaired glucose tolerance (oral)
CPT/HCPCS: 36415; 80053; 80061; 83036; 84443; 85025

== ENCOUNTER → 2024-11-09 06:43 | Outpatient (REF) | payer OTHER, MEDICARE, SELFPAY ==
[2024-11-09 07:18] LABS: Hematocrit 35.6 % (37.0-47.0); Hemoglobin 11.9 g/dL (12.0-16.0); Mean Corp Hgb Conc. 33.4 g/dL (33.0-37.0); Mean Corpuscular Volume 93.7 fL (81.0-99.0); Nucleated Red Blood Cells % 0 %; Platelet Count 269 10^3/uL (130-400); Red Cell Dist. Width 12.1 % (11.5-14.5)
[2024-11-09 07:53] LABS: ALT (SGPT) 18 U/L (0-35); AST (SGOT) 17 U/L (14-36); Albumin 3.9 g/dl (3.5-5.0); Alkaline Phosphatase 47 U/L (38-126); Blood Urea Nitrogen 24 mg/dl (7-17); Calcium 9.4 mg/dl (8.4-10.2); Carbon Dioxide 26 mmol/L (22-30); Chloride 112 mmol/L (98-107); Glucose 94 mg/dl (70-99); HDL Cholesterol 51 mg/dl; LDL Cholesterol, Calculated 80 mg/dl; Potassium 4.7 mmol/L (3.5-5.1); Sodium 142 mmol/L (135-145); Total Protein 6.8 g/dl (6.3-8.2); Very Low Density Lipoprotein 17 mg/dl (0-30); eGFR 49.92
[2024-11-09 08:24] LABS: TSH 1.30 uIU/ml (0.47-4.68)
[2024-11-09 09:53] LABS: Glycohemoglobin (HgbA1c) 5.7 % (4.0-5.6)
[2024-11-09 10:14] LABS: Iron 88 ug/dl (37-170)
[2024-11-09 10:28] LABS: Total Iron Binding Capacity 253 ug/dl (265-497)
[2024-11-09 10:35] LABS: Ferritin 78.2 ng/ml (11.1-264.0)
[2024-11-09 11:06] LABS: Folate 5.4 ng/ml (2.76-20); Vitamin B12 311 pg/ml (239-931)
== END ==
LOC: REG 06:43
PROVIDERS: ATTENDING PHYSICIAN Internal Medicine Interventional Cardiology; FAMILY PHYSICIAN Physician Assistant Medical; REFERRING PHYSICIAN Student in an Organized Health Care Education/Training Program
DX: E78.2 Mixed hyperlipidemia (principal); I25.10 Atherosclerotic heart disease of native coronary artery without angina pectoris; I10 Essential (primary) hypertension; Q61.2 Polycystic kidney, adult type; I35.0 Nonrheumatic aortic (valve) stenosis; K25.9 Gastric ulcer, unspecified as acute or chronic, without hemorrhage or perforation; M81.0 Age-related osteoporosis without current pathological fracture; Z68.31 Body mass index [BMI] 31.0-31.9, adult; R73.02 Impaired glucose tolerance (oral); D64.9 Anemia, unspecified
CPT/HCPCS: 36415; 80053; 80061; 82607; 82728; 82746; 83036; 83540; 83550; 84443; 85025

== ENCOUNTER → 2024-12-24 13:40 | Outpatient (REF) | payer OTHER, MEDICARE, SELFPAY ==
[2024-12-24 14:46] LABS: Hematocrit 34.4 % (37.0-47.0); Hemoglobin 11.5 g/dL (12.0-16.0); Mean Corp Hgb Conc. 33.4 g/dL (33.0-37.0); Mean Corpuscular Volume 92.2 fL (81.0-99.0); Nucleated Red Blood Cells % 0 %; Platelet Count 226 10^3/uL (130-400); Red Cell Dist. Width 12.4 % (11.5-14.5); Reticulocyte Count 1.1 % (0.4-2.8)
[2024-12-24 15:16] LABS: ALT (SGPT) 18 U/L (0-35); AST (SGOT) 19 U/L (14-36); Albumin 4.1 g/dl (3.5-5.0); Alkaline Phosphatase 61 U/L (38-126); Blood Urea Nitrogen 24 mg/dl (7-17); Iron 83 ug/dl (37-170); LDH 169 U/L (120-246); Total Protein 7.0 g/dl (6.3-8.2)
[2024-12-24 15:27] LABS: Total Iron Binding Capacity 253 ug/dl (265-497)
[2024-12-24 15:49] LABS: Ferritin 81.7 ng/ml (11.1-264.0)
[2024-12-24 16:20] LABS: Folate 10.1 ng/ml (2.76-20); Vitamin B12 312 pg/ml (239-931)
== END ==
LOC: REG 13:40
PROVIDERS: ATTENDING PHYSICIAN Internal Medicine Hematology & Oncology; FAMILY PHYSICIAN Physician Assistant Medical
DX: D64.9 Anemia, unspecified (principal)
CPT/HCPCS: 36415; 80076; 82565; 82607; 82668; 82728; 82746; 82784; 83010; 83521; 83540; 83550; 83615; 84155; 84165; 84520; 85025; 85045; 85652; 86334

== ENCOUNTER → 2025-02-18 07:31 | Outpatient (REF) | payer OTHER, MEDICARE, SELFPAY ==
[2025-02-18 08:21] LABS: Hemoglobin 11.1 g/dL (12.0-16.0)
[2025-02-18 08:45] LABS: ALT (SGPT) 25 U/L (0-35); AST (SGOT) 21 U/L (14-36); Albumin 3.9 g/dl (3.5-5.0); Alkaline Phosphatase 50 U/L (38-126); Blood Urea Nitrogen 30 mg/dl (7-17); Calcium 10.1 mg/dl (8.4-10.2); Carbon Dioxide 30 mmol/L (22-30); Chloride 107 mmol/L (98-107); Glucose 98 mg/dl (70-99); HDL Cholesterol 58 mg/dl; LDL Cholesterol, Calculated 84 mg/dl; Potassium 4.6 mmol/L (3.5-5.1); Sodium 140 mmol/L (135-145); Total Protein 6.8 g/dl (6.3-8.2); Very Low Density Lipoprotein 11 mg/dl (0-30); eGFR 41.49
== END ==
LOC: REG 07:31
PROVIDERS: ATTENDING PHYSICIAN Specialist; FAMILY PHYSICIAN Physician Assistant Medical
DX: Q61.3 Polycystic kidney, unspecified (principal); N18.1 Chronic kidney disease, stage 1; D64.9 Anemia, unspecified; K25.9 Gastric ulcer, unspecified as acute or chronic, without hemorrhage or perforation; K22.10 Ulcer of esophagus without bleeding; K59.04 Chronic idiopathic constipation; Z86.0100 Personal history of colon polyps, unspecified
CPT/HCPCS: 36415; 80053; 80061; 85018